=== PATIENT | male | born 1925 | race Caucasian/White ===

== ENCOUNTER 2016-08-13 17:49 | Observation (INO) | payer MEDICARE ==
[~2016-08-13] VITALS: Ht 182.9 cm; Wt 91.3 kg
[~2016-08-13 17:49] MED LIST: AMOXICILLIN500 M2 PO
[2016-08-13 17:51] VITALS: BP 117/64
[2016-08-13] MEDS ORDERED: WARFARIN 3MG TAB3 MG PO (18:04)
[2016-08-13] MEDS ORDERED: CYANOCOBAL1000 MCG/M PO (18:04)
[2016-08-13] MEDS ORDERED: FUROSEMIDE40 MG PO (18:05)
[2016-08-13] MEDS ORDERED: LEVOTHYROXINE0.05 MG PO (18:06)
[2016-08-13] MEDS ORDERED: ALBUTEROL2.5 MG/NEB INH (18:06)
[2016-08-13] MEDS ORDERED: ISOSORBIDE MONO30 MG PO (18:06)
[2016-08-13] MEDS ORDERED: CARVEDILOL6.25 MG PO (18:07)
[2016-08-13] MEDS ORDERED: DONEPEZIL 10MG10 MG PO (18:07)
[2016-08-13] MEDS ORDERED: CRESTOR20 MG PO (18:08)
[2016-08-13] MEDS ORDERED: TRICOR 145 MG145 MG NG (18:08)
[2016-08-13] MEDS ORDERED: VITAMIN D1000 IU PO (18:09)
[2016-08-13] MEDS ORDERED: LOVAZA1 GM PO (18:09)
[2016-08-13] MEDS ORDERED: NAMENDA XR28 MG PO (18:10)
[2016-08-13 18:21] LABS: HEMOGLOBIN 15.8 g/dL (14.1-18.0); LYMPH # 1.1 K/mm3 (0.7-4.5); LYMPH % 16.6 % (10-50)
[2016-08-13 18:41] LABS: URINE BILIRUBIN - DIPSTICK NEGATIVE (NEG); URINE BLOOD NEGATIVE (NEG)
--- NOTE | 2016-08-13 18:41 | Emergency Room Report ---
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 STATES PT IS CONFUSED AND NOT STANDING WELL STATES HE NORMALLY AMBULATES WITHOUT ASSIST. OFFICE REPORTS PT HAS HAD A DECLINE OVER PAST TWO DAYS. PT DENIES PAIN. 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 N Clinical Suspician of Infection? N Mental Status: 1 - Regular (Normal Baseline) Sepsis Risk:Low Sepsis Risk Have you (or family members/close friends) recently traveled outside the [place]? N If Yes, where/when: Have you had exposure to infectious disease within the past month? N TB? Other? Specify: Patient with frequent falls and confusion per PCP office report. They have requested workup and possible admission. Granddaughter states falling recently, generalized weakness, some confusion. Usually pretty lucid and ambulatory. No fevers or vomiting but taking less PO. ALLERGIES Coded Allergies: No Known Allergies (10/14/15) Home Medications Reported Medications VITAMIN B12 (Cyanocobalamin Injection) 1,000 MCG PO DAILY WARFARIN SOD (Warfarin 3MG) 3 MG PO DAILY Furosemide (Furosemide 40MG) 40 MG PO BID Isosorbide Mononitrate (Isosorbide Mononitrate ER) 30 MG PO QID Levothyroxine Sodium (Levothyroxine) 0.05 MG PO DAILY ALBUTEROL (Albuterol 0.083% Neb) 2.5 MG INH Q6HS PRN ASTHMA Carvedilol (Carvedilol 6.25MG) 3.12 MG PO BID DONEPEZIL HCL (Donepezil 10MG Tablet) 10 MG PO QHS Fenofibrate 145 MG NG QHS Rosuvastatin Calcium (Crestor) 20 MG PO QHS CHOLECALCIFEROL (VITAMIN D3) (Vitamin D3) 1,000 IUNITS PO DAILY OMEGA-3 ACID ETHYL ESTERS (Lovaza) 1 GM PO BID MEMANTINE HCL (Namenda XR) 28 MG PO DAILY (Dav NUNO, Nola Drummond) History Medical History General CAD? Yes Angina: No LA: No Hypertension? Yes Hyperlipidemia? Yes CHF? Yes DVT? No PE? No COPD? No Asthma? No Anemia? Yes GERD? No Gastric ulcers? No GI Bleed? No Hernia? Yes Thyroid Problems? Yes Hypothyroidism? Yes CVA? No Seizures? No Diabetes? No Renal Insuffiency? Yes End Stage Renal Disease? No UTI? No Stones? No BPH? Yes GB Disease: No Nephritic Syndrome? No Asplenia? No Hepatitis? No Sickle Cell Disease? No Arthritis? Yes Migraines? No Cataracts? No Glaucoma? No MRSA? No HIV? No TB? No Anxiety? No Depression? No Cancer? No More? Yes Additional hx: IRREGULAR HR Immunization Hx DT/Tetanus Unknown Surgical Hx Previous Surgery?Y PACEMAKER COLON SX Social History Smoking Hx Smoker: Current Every Day Smoker Tobacco: Yes Type Cigarettes Packs/day 1 1/2 - 2 Packs Alcohol Alcohol: No (Dav NUNO, Nola Drummond) Review of Systems All Other Systems Reviewed and Negative (per pt and granddaughter) Psychiatric/Neurological see HPI, other (progressive decline) (Dav NUNO, Nola Drummond) Physical Exam Vital Signs Vital Signs Date Time Temp Pulse Resp B/P Pulse O2 O2 Flow FiO2 Ox Delivery Rate 08/13 2033 98.9 70 20 97/54 92 08/13 1952 77 18 96/54 92 08/13 1950 98.9 70 20 96/54 94 08/13 1912 69 20 102/61 92 08/13 1831 76 20 111/61 91 08/13 1751 98.4 77 20 117/64 92 General Appearance normal appearance, WD/WN, no apparent distress Eye Exam - bilateral eye normal exam, bilateral eye PERRL Ear, Nose, Throat normal pharynx (OP dry) Neck normal inspection, non-tender, supple Respiratory Status Yes: trachea midline, chest symmetrical, non tender chest. No: respiratory distress, tender on palpation, use of accessory muscles, pain on inspiration, pain on expiration, productive cough, non productive cough. Lung Sounds bilateral: normal breath sounds, lungs clear. Cardiovascular normal exam, regular rate/rhythm, no peripheral edema, no gallop, no JVD, no murmur, no rub, normal peripheral pulses Gastrointestinal normal bowel sounds, normal exam, non tender, soft, no organomegaly, no pulsatile mass, no guarding, no rebound Extremities non-tender, normal range of motion, normal inspection, normal capillary refill, no calf tenderness, no pedal edema Neurologic alert, ergonomist II-XII nml as tested, normal exam, no motor/sensory deficits, Seems pleasantly demented: believes it is 1927, knows his name; not sure why he is at [facility]; initially afraid of staff but is cooperative; speech clear and fluent; exam nonfocal; no tremor Glascow Coma Scale Glascow Coma Scale Response Value EYE response: 4 Spontaneously 4 MOTOR response: 6 OBEYS 6 VERBAL response: 5 Oriented & Converses 5 Total 15 Skin intact (multiple sebaceous cysts face) (Dav NUNO, Nola Drummond) Medical Decision Making LABS/Meds/Orders Pt receiving controlled substance in ED? No Results/Orders Laboratory Tests 08/13/16 2004: PT 18.7 H, INR 1.75 H 08/13/16 1825: Urine Color YELLOW, Urine Appearance CLEAR, Urine pH 5.5, Ur Specific [place] 1.025, Urine Protein NEGATIVE, Urine Ketones NEGATIVE, Urine Blood NEGATIVE, Urine Nitrate NEGATIVE, Urine Bilirubin NEGATIVE, Urine Urobilinogen 0.2, Ur Leukocyte Esterase NEGATIVE, Ur Squamous Epith Cells 3-5, Urine Bacteria TRACE, Urine Yeast 3+, Urine Glucose NEGATIVE 08/13/16 1800: Lactic Acid 1.1 08/13/16 1800: Sodium 139, Potassium 4.4, Chloride 102, Carbon Dioxide 25, BUN 43 H, Creatinine 2.6 H, Estimated Creat Clear 22 L, Estimated GFR (MDRD) 23, Glucose 104, Calcium 9.8, Total Bilirubin 0.6, AST 73 H, ALT 29, Alkaline Phosphatase 31 L, Creatine Kinase 191, CK-MB (CK-2) Rel Index 0.7, CK and CKMB Interp 1.3, Troponin I 0.06, Total Protein 7.1, Albumin 3.1 L, Globulin 4.0 H, Albumin/ Globulin Ratio 0.8 L, WBC 6.7, RBC 4.77, Hgb 15.8, Hct 47.4, MCV 99.5 H, RDW 15.5, Plt Count 136 L, MPV 10.8 H, Gran % 70.2, Gran # 4.7, Lymphocytes % 16.6 , Monocytes % 10.8 H, Eosinophils % 1.0, Basophils % 1.4, Lymphocytes # 1.1, Monocytes # 0.7, Eosinophils # 0.1, Basophils # 0.1, PUBS MCHC 33.3, MCH 33.2 H Current Medication Orders Sig/Nupur Start time Last Medication Dose Route Stop Time Status Admin Sodium Chloride 1,000 ML .Q8H 08/13 1999 AC 08/13 IV 08/14 0750 195 Sodium Chloride 10 ML PRN PRN 08/13 1999 AC IV 08/14 1950 Sodium Chloride 1,000 ML .STK-MED ONE 08/13 1947 DC IV Orders Procedure Date/time Status DIET-NOTHING BY MOUTH 08/14 B Active IV SALINE LOCK 08/13 1950 Active ELECTROCARDIOGRAM REQUEST 08/[address] HEAD REQ 08/13 181 Complete PROTHROMBIN TIME 08/13 181 Complete CULTURE, BLOOD 08/13 1802 Active URINALYSIS/COMPLETE 08/13 180 Complete LACTIC ACID 08/13 180 Complete CBC WITH AUTO DIFF 08/13 180 Complete CARDIAC ENZYMES 08/13 180 Complete CHEM 12 PROFILE 08/13 180 Complete CM/EKG CM/EKG EKG rate, NSR, rhythm, no evid. of ischemic chgs, no ectopy, normal EKG, paced ventricular rhythm; a first EKG was obtained and noted to have wandering baseline so false reading of "LA and immediate repeat EKG was normal. XRAY/CT/US XRAY/CT/US XR interpretation by reviewed by me Xray Results normal/NAD, no infiltrates (PM; borderline CM; neg acute) CT head CT interpretation by reviewed by me ([facility] report reviewed) Time results known: 1947 Consult MD Physician Consult Time Called 1947 Reason Pt. Condition, Admission (Nola Demarco MD) Departure Departure Time of Disposition 1947 Disposition Still a Patient Clinical Impression Primary Impression: Generalized weakness Secondary Impressions: Confusion with non-focal neuro exam, Dehydration Condition STABLE ED Critical Care Critical Care Yes Time spent < 30 min Vital system(s) involved: Circulatory Failure (confusion) I was present at bedside for Coordinating pt's care, Interpreting EKGs/Strips , During my initial exam, Reviewing lab results, Reviewing old records, Discussing pt condition, For re-examinations (d/w family; consultation), Examining radiographs (Nola Demarco MD) Departure Time of Disposition 2039 Referrals Gurdeep Joe MD (Family) discussed with dr joe (Haris Adame MD) at 2040
--- NOTE | 2016-08-13 20:07 | RADIOLOGY REPORT PS360 ---
CT HEAD W/O CONTRAST HISTORY: Confusion, weakness, altered mental status/memory loss with disorientation CONFUSION COMPARISON: None TECHNIQUE: Axial images obtained without contrast. Brain and bone windows reviewed. FINDINGS: No midline shift, mass effect, intracranial hemorrhage, hydrocephalus, or extra-axial fluid collection is evident. There is atrophy with hypoattenuation in the periventricular region and subcortical area consistent with ischemic gliotic change from microvascular disease. Small area of decreased attenuation is present in the right thalamus consistent with an old lacunar infarction. The calvarium has an unremarkable appearance. No mastoid effusion. There is mucosal thickening of the ethmoid sinuses and an air-fluid level in the left aspect of the sphenoid sinus.. IMPRESSION: 1. Atrophy with chronic ischemic changes. 2. Sinusitis.
--- NOTE | 2016-08-13 20:08 | RADIOLOGY REPORT PS360 ---
CHEST-PORTABLE HISTORY: CONFUSION COMPARISON: None available FINDINGS: There is mild cardiomegaly without failure. Tripolar pacer is present. The lungs are clear bilaterally. No acute bony anomalies. IMPRESSION: Mild cardiomegaly otherwise negative.
[2016-08-13 22:12] VITALS: BP 104/48
[2016-08-13 22:51] VITALS: BP 97/48
[2016-08-14 04:54] VITALS: BP 111/60
[2016-08-14 06:37] LABS: HEMOGLOBIN 14.3 g/dL (14.1-18.0); LYMPH # 1.3 K/mm3 (0.7-4.5); LYMPH % 20.2 % (10-50)
[2016-08-14] MEDS ORDERED: TRICOR145 M1 PO (07:19)
[2016-08-14] MEDS ORDERED: COREG 3.125M3.125 MG PO (07:22)
--- NOTE | 2016-08-14 07:24 | PHARMACY CLINIC NOTE ---
Patient Demographics Patient Demographics Admission date: 08/13/16 Date: 08/14/16 Time: 07 Allergies Coded Allergies: No Known Allergies (10/14/15) HEIGHT- FT: 6 IN: 0.00 K.132 VTE General Information Labs: Laboratory Tests 08/14 1800 Coagulation PT (9.4 - 11.8 SECONDS) 18.7 H INR (0.9 - 1.1) 1.75 H Hematology Hgb (14.1 - 18.0 g/dL) 14.3 15.8 Hct (42.0 - 52.0 %) 44.4 47.4 Plt Count (142 - 424 K/mm3) 120 L 136 L Disclaimer The following section includes nursing documentation that has been pulled in for pharmacy review. Patient's VTE score: 2 Patient's VTE Risk: VERY LOW RISK Clinical trial participant? No VTE prophylaxis [id number] VTE prophylaxis ordered? Yes Type of prophylaxis/treatment: OG at 0723
[2016-08-14 08:31] VITALS: BP 115/65
[2016-08-14 08:48] VITALS: BP 115/65
--- NOTE | 2016-08-14 08:58 | HISTORY AND PHYSICAL REPORT ---
History and Physical ([facility]) Date of admission: 08/13/16 Chief complaint: Weakness History: History of Present Illness: Mr. Carroll is an 89-year-old white male who presented to the office of [facility] yesterday with increasing weakness. Patient's granddaughter reported that he had trouble getting around the house and fallen twice in the past 2 days. He had increased confusion. He lives with his granddaughter and great-granddaughter. His granddaughter reported he had not smoked in the past few weeks due to the cold weather, but he normally had a productive cough which had not changed. He does take neb treatments at home and took one the morning prior to his appointment in the office due to some shortness of breath while his granddaughter was helping him with a bath. His appetite is decreased, however he continued to take fluids well. She felt that there was a foul-smell to his urine and it had been darker over the past few days. He had not run a fever. He was evaluated in the office and his complete blood count was normal as was his U/A. It was felt he needed to be evaluated in the emergency room for weakness and confusion therefore an ambulance was called and he was transported to [facility]. Past Medical History: Medical History: CAD? Yes Angina: No MO: No Hypertension? Yes Hyperlipidemia? Yes CHF? Yes DVT? No PE? No COPD? No Asthma? No Anemia? Yes GERD? No Gastric ulcers? No GI Bleed? No Hernia? Yes Thyroid Problems? Yes Hypothyroidism? Yes CVA? No Seizures? No Diabetes? No Renal Insuffiency? Yes UTI? No Stones? No BPH? Yes GB Disease: No Nephritic Syndrome? No Asplenia? No Hepatitis? No Sickle Cell Disease? No Arthritis? Yes Migraines? No Cataracts? No Glaucoma? No MRSA? No HIV? No TB? No Anxiety? No Depression? No Cancer? No More? Yes Additional hx: 1. IRREGULAR HR 2. Cardiomyopathy 3. Pacemaker 4. Alzheimers Surgical history: Previous Surgery?Y 1. PACEMAKER 2. COLON SX 3. STENT 4. CATARACT 5. APPENDECTOMY Medications: Reported Medications FENOFIBRATE NANOCRYSTALLIZED (Tricor) 145 MG PO QHS Carvedilol (Coreg 3.125MG) 3.125 MG PO BID VITAMIN B12 (Cyanocobalamin Injection) 1,000 MCG PO DAILY WARFARIN SOD (Warfarin 3MG) 3 MG PO DAILY Furosemide (Furosemide 40MG) 40 MG PO BID Isosorbide Mononitrate (Isosorbide Mononitrate ER) 30 MG PO QID Levothyroxine Sodium (Levothyroxine) 0.05 MG PO DAILY ALBUTEROL (Albuterol 0.083% Neb) 2.5 MG INH Q6HS PRN ASTHMA DONEPEZIL HCL (Donepezil 10MG Tablet) 10 MG PO QHS Rosuvastatin Calcium (Crestor) 20 MG PO QHS CHOLECALCIFEROL (VITAMIN D3) (Vitamin D3) 1,000 IUNITS PO DAILY OMEGA-3 ACID ETHYL ESTERS (Lovaza) 1 GM PO BID MEMANTINE HCL (Namenda XR) 28 MG PO DAILY Allergies: Coded Allergies: atorvastatin (08/14/16) Family History: Family history: Postive for: unknown. Social History: Smoking Hx Tobacco: Yes Smoker: Current Every Day Smoker Type: Cigarettes Packs/day: 1 1/2 - 2 Packs Are you exposed to second hand No Alcohol: Alcohol: No Hx of Drug Use: Drug Use? No Review of Systems: Constitutional Positive for: fatigue, lethargy, malaise, weak. ENT No: nasal congestion, sore throat. Cardiovascular No: chest pain, edema, palpitations. Respiratory Positive for: shortness of air, productive cough (sputum), wheezing. GI No: abdominal pain, diarrhea, nausea, vomitting. (male) No: frequency, hematuria. Neurological Positive for: confusion, dizziness, weakness. No: syncope. Musculoskeletal No: extremity pain, joint pain, myalgias. Physical Exam: Vital signs: 1ST Vital Signs Result Date Time Pulse Ox 92 08/13 1750 B/P 117/64 08/13 1750 Temp 98.4 08/13 1750 Pulse 77 08/13 175 Resp 20 08/13 1750 O2 Delivery ROOM AIR 08/13 2210 Exam: General appearance: Pt is very hard of hearing, he can answer some questions but falls asleep during questioning Eyes: EOM's w/normal ROM, PERRLA ENT: nose normal, pharynx normal, tympanic membranes normal, dry mucous membranes, cerumen in ear canals Neck: non-tender, full range of motion, supple Cardiovascular: regular rate & rhythm Respiratory: faint expiratory wheezes, no rales ABD: non-distended, normal bowel sounds, no rebound, soft, no tenderness, no guarding Extremities: no peripheral edema Musculoskeletal: equal muscle strength (but weak) Skin: normal color Neuro: magnetic 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 II-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 nml as tested, speech clear, strength equal but weak, patient confused off and on and falls asleep during questioning Lab data: Labs: Laboratory Tests 08/14/16 0620: Sodium 142, Potassium 4.0, Chloride 106, Carbon Dioxide 29, BUN 43 H, Creatinine 2.4 H, Estimated Creat Clear 26 L, Estimated GFR (MDRD) 26, Glucose 86, Calcium 9.2, WBC 6.5, RBC 4.43 L, Hgb 14.3, Hct 44.4, MCV 100.3 H, RDW 15.0, Plt Count 120 L, MPV 11.3 H, Gran % 66.2, Gran # 4.3, Lymphocytes % 20.2 , Monocytes % 12.0 H, Eosinophils % 0.8, Basophils % 0.8, Lymphocytes # 1.3, Monocytes # 0.8, Eosinophils # 0.1, Basophils # 0.1, PUBS MCHC 32.2, MCH 32.3 H 08/13/16 2100: Influenza Type A Ag NOT DETECTED, Influenza Type B Ag NOT DETECTED 08/13/16 2004: PT 18.7 H, INR 1.75 H 08/13/16 1825: Urine Color YELLOW, Urine Appearance CLEAR, Urine pH 5.5, Ur Specific [place] 1.025, Urine Protein NEGATIVE, Urine Ketones NEGATIVE, Urine Blood NEGATIVE, Urine Nitrate NEGATIVE, Urine Bilirubin NEGATIVE, Urine Urobilinogen 0.2, Ur Leukocyte Esterase NEGATIVE, Ur Squamous Epith Cells 3-5, Urine Bacteria TRACE, Urine Yeast 3+, Urine Glucose NEGATIVE 08/13/16 1800: TSH 3.57, Thyroxine (T4) 8.4 08/13/16 1800: Lactic Acid 1.1 08/13/16 1800: Sodium 139, Potassium 4.4, Chloride 102, Carbon Dioxide 25, BUN 43 H, Creatinine 2.6 H, Estimated Creat Clear 22 L, Estimated GFR (MDRD) 23, Glucose 104, Calcium 9.8, Total Bilirubin 0.6, AST 73 H, ALT 29, Alkaline Phosphatase 31 L, Creatine Kinase 191, CK-MB (CK-2) Rel Index 0.7, CK and CKMB Interp 1.3, Troponin I 0.06, Total Protein 7.1, Albumin 3.1 L, Globulin 4.0 H, Albumin/ Globulin Ratio 0.8 L, WBC 6.7, RBC 4.77, Hgb 15.8, Hct 47.4, MCV 99.5 H, RDW 15.5, Plt Count 136 L, MPV 10.8 H, Gran % 70.2, Gran # 4.7, Lymphocytes % 16.6 , Monocytes % 10.8 H, Eosinophils % 1.0, Basophils % 1.4, Lymphocytes # 1.1, Monocytes # 0.7, Eosinophils # 0.1, Basophils # 0.1, PUBS MCHC 33.3, MCH 33.2 H Microbiology 08/13 1799 BLOOD: Anaerobic Blood Culture - RECD 08/13 1800 BLOOD: Aerobic Blood Culture - RECD 08/13 1800 BLOOD: Anaerobic Blood Culture - RECD 08/13 1800 BLOOD: Aerobic Blood Culture - RECD Radiology results: Results: CXR - Mild cardiomegaly otherwise negative. Head CT - Atrophy with chronic ischemic changes. Sinusitis. Diagnosis(es): 1. Generalized weakness Status: Acute 2. Renal insufficiency 3. Confusion with non-focal neuro exam Status: Acute 4. Dehydration Status: Acute 5. Sinusitis Status: Acute 6. HYPERLIPIDEMIA, UNSPECIFIED 7. HYPOTHYROIDISM, UNSPECIFIED 8. COPD (chronic obstructive pulmonary disease) 9. Cardiomyopathy 10. Alzheimer's dementia Plan: Pt's CT showed a sinusitis. Will start on some rocephin. He has already been started on some of his home medications. Will continue to monitor. Renal function has improved slightly. at 0857
[2016-08-14 16:02] VITALS: BP 118/61
[2016-08-14 20:03] VITALS: BP 125/63
[2016-08-14 21:30] VITALS: BP 125/63
[2016-08-15 04:03] VITALS: BP 92/52
[2016-08-15 07:43] LABS: HEMOGLOBIN 14.6 g/dL (14.1-18.0); LYMPH # 1.2 K/mm3 (0.7-4.5); LYMPH % 28.7 % (10-50)
[2016-08-15 07:54] VITALS: BP 101/55
[2016-08-15 09:35] VITALS: BP 101/55
[2016-08-15 16:41] VITALS: BP 124/69
--- NOTE | 2016-08-15 17:15 | ACUTE CARE PROGRESS NOTE (QUA) ---
Progress Notes Subjective Date 08/15/16 Time 1710 Note Mentating better today, though he is still confused as to place. Able to talk about living in [place] and in [place]. Father from [place], mother from [place]. 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 Patient/family reports: feeling better Objective Findings Laboratory Tests 08/15/16 0650: Sodium 143, Potassium 4.2, Chloride 108 H, Carbon Dioxide 26, BUN 43 H, Creatinine 1.9 H, Estimated Creat Clear 33 L, Estimated GFR (MDRD) 34, Glucose 76, Calcium 9.2, WBC 4.3 L, RBC 4.42 L, Hgb 14.6, Hct 44.8, MCV 101.4 H, RDW 15.1, Plt Count 106 L, MPV 10.8 H, Gran % 56.1, Gran # 2.4, Lymphocytes % 28.7 , Monocytes % 12.9 H, Eosinophils % 0.8, Basophils % 1.5, Lymphocytes # 1.2, Monocytes # 0.6, Eosinophils # 0.0, Basophils # 0.1, PUBS MCHC 32.5, MCH 32.9 H Last VS-Temp:98.3 B/P:124/69 Pulse:67 Resp:16 SaO2:91 ROOM AIR Last weight lbs:196 oz:8 K.132 Method:Bed Scales Exam Cardiovascular: regular rate & rhythm (pacer battery in place) Respiratory: clear to auscultation (slight wheeze and cough) ABD: soft Extremities: no peripheral edema Assessment/Plan Problem List 1. Generalized weakness Status: Acute 2. Renal insufficiency 3. Confusion with non-focal neuro exam Status: Acute 4. Dehydration Status: Acute 5. Sinusitis Status: Acute 6. HYPERLIPIDEMIA, UNSPECIFIED 7. HYPOTHYROIDISM, UNSPECIFIED 8. COPD (chronic obstructive pulmonary disease) 9. Cardiomyopathy 10. Alzheimer's dementia Patient condition Improving Plan: Xopenex. Increased Memantine to bid This inpt stay is expected to cross 2 MNs from start of care Yes at 1712
[2016-08-15 19:38] VITALS: BP 124/69
[2016-08-15 20:00] VITALS: BP 112/73
[2016-08-16 03:59] VITALS: BP 101/63
[2016-08-16 08:07] VITALS: BP 132/59
--- NOTE | 2016-08-16 15:16 | ACUTE CARE PROGRESS NOTE (QUA) ---
Progress Notes Subjective Date 08/16/16 Time 1513 Note He is much more mentally intact. Discusses placement with family in [facility]. vs [place]. Objective Findings Last VS-Temp:98.1 B/P:132/59 Pulse:70 Resp:16 SaO2:93 ROOM AIR Last weight lbs:196 oz:8 K.132 Method:Bed Scales Exam General appearance: alert, no acute distress Eyes: anicteric ENT: mucous membranes moist Cardiovascular: regular rate & rhythm (paced) Respiratory: aerating well ABD: soft, no tenderness Extremities: says right 5th toe hurts. Exam normal. OG's were adjusted. Assessment/Plan Problem List 1. Generalized weakness Status: Acute 2. Renal insufficiency 3. Confusion with non-focal neuro exam Status: Acute 4. Dehydration Status: Acute 5. Sinusitis Status: Acute 6. HYPERLIPIDEMIA, UNSPECIFIED 7. HYPOTHYROIDISM, UNSPECIFIED 8. COPD (chronic obstructive pulmonary disease) 9. Cardiomyopathy 10. Alzheimer's dementia Patient condition Improving Plan: care management consult This inpt stay is expected to cross 2 MNs from start of care Yes at 1516
[2016-08-16 16:38] VITALS: BP 100/60
[2016-08-16 19:39] VITALS: BP 103/59
[2016-08-17 04:00] VITALS: BP 105/48
[2016-08-17 07:49] VITALS: BP 104/58
--- NOTE | 2016-08-17 08:52 | ACUTE CARE PROGRESS NOTE (QUA) ---
Progress Notes Subjective Date 08/17/16 Time 0851 Assessment/Plan Problem List 1. Generalized weakness Status: Acute 2. Renal insufficiency 3. Confusion with non-focal neuro exam Status: Acute 4. Dehydration Status: Acute 5. Sinusitis Status: Acute 6. HYPERLIPIDEMIA, UNSPECIFIED 7. HYPOTHYROIDISM, UNSPECIFIED 8. COPD (chronic obstructive pulmonary disease) 9. Cardiomyopathy 10. Alzheimer's dementia This inpt stay is expected to cross 2 MNs from start of care Yes Antibiotic Stewardship (2) Current Culture Results Microbiology 08/13 1800 BLOOD: Anaerobic Blood Culture - RECD 08/13 1800 BLOOD: Aerobic Blood Culture - RECD Infxn that will respond? Yes Right drug,dose,and route? Yes More targeted antbx? No How long atbx needed? 7 at 0851
--- NOTE | 2016-08-17 08:58 | ACUTE CARE PROGRESS NOTE (QUA) ---
Progress Notes Subjective Date 08/17/16 Time 0851 Note Thinks that he is better; states he is a good sleeper; eating well; has been OOB ; productive cough; denies CP and SOB; voiding QS and bowels are moving Objective Findings Laboratory Tests 08/17/16 0610: Sodium 144, Potassium 4.3, Chloride 111 H, Carbon Dioxide 26, BUN 31 H, Creatinine 1.7 H, Estimated Creat Clear 38 L, Estimated GFR (MDRD) 38, Glucose 81, Calcium 9.2, PT 23.7 H, INR 2.21 H Vital Signs Date Time Temp Pulse Resp B/P Pulse O2 O2 Flow FiO2 Ox Delivery Rate 08/17 0749 98.7 74 20 104/58 94 ROOM AIR 08/17 0547 93 ROOM AIR 08/17 0400 98.7 69 18 105/48 93 ROOM AIR 08/16 2058 98.1 72 16 103/59 92 08/16 1939 98.1 72 16 103/59 92 ROOM AIR 08/16 1638 97.9 69 20 100/60 93 ROOM AIR Current Medications Isosorbide Mononitrate 30 MG BID PO Acetaminophen 0 .STK-MED ONE PO (DC) Memantine 10 MG BID PO Levalbuterol HCl 1.25 MG TIDRT INH Fenofibrate 134 MG QHS PO Warfarin Sodium 3 MG 1100 PO Carvedilol 3.125 MG BID PO Ceftriaxone Sodium 1 GM DAILY IV Sodium Chloride 50 ML Levothyroxine Sodium 0.05 MG DAILY PO Acetaminophen 650 MG Q4HP PRN PO Donepezil HCl 10 MG QHS PO Isosorbide Mononitrate 30 MG QID PO (DC) Nicotine 21 MG DAILYP PRN TD Ondansetron HCl 4 MG Q6HP PRN IV Sodium Chloride 1,000 ML .[id number] IV Sodium Chloride 10 ML PRN PRN IV 08/16 1500 08/16 2300 08/17 0700 Intake Total 180 1040 1503 Output Total Balance 180 1040 1503 Intake, IV 680 1503 Intake, Oral 180 360 Output, Stool Patient 201 lb Weight Last VS-Temp:98.7 B/P:104/58 Pulse:74 Resp:20 SaO2:94 ROOM AIR Last weight lbs:201 oz:5 K.314 Method:Bed Scales Exam General appearance: alert, no acute distress, sitting up in the bed eating breakfast Cardiovascular: regular rate & rhythm Respiratory: some expiratory wheezing and rhonchi clearing with deep breathing and coughing ABD: non-distended, soft, no tenderness, no guarding Extremities: no peripheral edema, no calf tenderness Neuro: alert, oriented Assessment/Plan Problem List 1. Generalized weakness Status: Acute 2. Renal insufficiency 3. Confusion with non-focal neuro exam Status: Acute 4. Dehydration Status: Acute 5. Sinusitis Status: Acute 6. HYPERLIPIDEMIA, UNSPECIFIED 7. HYPOTHYROIDISM, UNSPECIFIED 8. COPD (chronic obstructive pulmonary disease) 9. Cardiomyopathy 10. Alzheimer's dementia Patient condition Improving Plan: Patient explains that he wishes to go to a place with "full Care" and not his son's house; he wishes the care but also the company, care management to follow-up This inpt stay is expected to cross 2 MNs from start of care Yes Antibiotic Stewardship (2) Infxn that will respond? Yes Right drug,dose,and route? Yes More targeted antbx? No at 0857
[2016-08-17] MEDS ORDERED: OMNICEF 300 MG300 MG PO (10:22)
[2016-08-17 15:00] VITALS: BP 104/58
[2016-08-18 08:40] LABS: Folate (Folic Acid) 15.2 ng/mL (>3.0)
--- NOTE | 2016-08-24 15:42 | DISCHARGE SUMMARY STANDARD ---
Discharge Summary ([facility]) Date of admission: 08/13/16 Date of discharge: 08/17/16 Problem List: 1. Generalized weakness 2. Renal insufficiency 3. Confusion with non-focal neuro exam 4. Dehydration 5. Sinusitis 6. HYPERLIPIDEMIA, UNSPECIFIED 7. HYPOTHYROIDISM, UNSPECIFIED 8. COPD (chronic obstructive pulmonary disease) 9. Cardiomyopathy 10. Alzheimer's dementia History of present illness: History of Present Illness: Mr. Carroll is an 89-year-old white male who presented to the office of [facility] yesterday with increasing weakness. Patient's granddaughter reported that he had trouble getting around the house and fallen twice in the previous 2 days. He had increased confusion. He lived with his granddaughter and great-granddaughter. His granddaughter reported he had not smoked in the past few weeks due to the cold weather, but he normally had a productive cough which had not changed. He was taking neb treatments at home and took one the morning prior to his appointment in the office due to some shortness of breath while his granddaughter was helping him with a bath. His appetite was decreased; however he continued to take fluids well. She felt that there was a foul-smell to his urine and it had been darker over the past few days. He had not run a fever. He was evaluated in the office and his complete blood count was normal as was his U /A. It was felt he needed to be evaluated in the emergency room for weakness and confusion therefore an ambulance was called and he was transported to [facility]. Exam on admission: Vital signs: 1ST Vital Signs Result Date Time Pulse Ox 92 08/13 1751 B/P 117/64 08/13 1751 Temp 98.4 08/13 1751 Pulse 77 08/13 1751 Resp 20 08/13 1751 O2 Delivery ROOM AIR 08/13 2210 Exam: General appearance: Pt was very hard of hearing; he answered some questions but fell asleep during questioning Eyes: EOM's w/normal ROM, PERRLA ENT: nose normal, pharynx normal, tympanic membranes normal, dry mucous membranes, cerumen in ear canals Neck: non-tender, full range of motion, supple Cardiovascular: regular rate & rhythm Respiratory: faint expiratory wheezes, no rales ABD: non-distended, normal bowel sounds, no rebound, soft, no tenderness, no guarding Extremities: no peripheral edema Musculoskeletal: equal muscle strength (but weak) Skin: normal color 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 He became more alert. Renal function also improved. He was also evaluated by PT who felt he was good to go home with home health. On 08/17/16 patient felt that he was better. He was eating better and had been OOB. On this date he was discharged to home. Disposition had been arranged by Care Management. Laboratory data this visit: 08/17/16 0610: Sodium 144, Potassium 4.3, Chloride 111 H, Carbon Dioxide 26, BUN 31 H, Creatinine 1.7 H, Estimated Creat Clear 38 L, Estimated GFR (MDRD) 38, Glucose 81, Calcium 9.2, PT 23.7 H, INR 2.21 H 08/14/16 0620: Sodium 142, Potassium 4.0, Chloride 106, Carbon Dioxide 29, BUN 43 H, Creatinine 2.4 H, Estimated Creat Clear 26 L, Estimated GFR (MDRD) 26, Glucose 86, Calcium 9.2, WBC 6.5, RBC 4.43 L, Hgb 14.3, Hct 44.4, MCV 100.3 H, RDW 15.0, Plt Count 120 L, MPV 11.3 H, Gran % 66.2, Gran # 4.3, Lymphocytes % 20.2 , Monocytes % 12.0 H, Eosinophils % 0.8, Basophils % 0.8, Lymphocytes # 1.3, Monocytes # 0.8, Eosinophils # 0.1, Basophils # 0.1, PUBS MCHC 32.2, MCH 32.3 H 08/13/16 2100: Influenza Type A Ag NOT DETECTED, Influenza Type B Ag NOT DETECTED 08/13/16 2004: PT 18.7 H, INR 1.75 H 08/13/16 1825: Urine Color YELLOW, Urine Appearance CLEAR, Urine pH 5.5, Ur Specific [place] 1.025, Urine Protein NEGATIVE, Urine Ketones NEGATIVE, Urine Blood NEGATIVE, Urine Nitrate NEGATIVE, Urine Bilirubin NEGATIVE, Urine Urobilinogen 0.2, Ur Leukocyte Esterase NEGATIVE, Ur Squamous Epith Cells 3-5, Urine Bacteria TRACE, Urine Yeast 3+, Urine Glucose NEGATIVE 08/13/16 1800: TSH 3.57, Thyroxine (T4) 8.4 08/13/16 1800: Lactic Acid 1.1 08/13/16 1800: Sodium 139, Potassium 4.4, Chloride 102, Carbon Dioxide 25, BUN 43 H, Creatinine 2.6 H, Estimated Creat Clear 22 L, Estimated GFR (MDRD) 23, Glucose 104, Calcium 9.8, Total Bilirubin 0.6, AST 73 H, ALT 29, Alkaline Phosphatase 31 L, Creatine Kinase 191, CK-MB (CK-2) Rel Index 0.7, CK and CKMB Interp 1.3, Troponin I 0.06, Total Protein 7.1, Albumin 3.1 L, Globulin 4.0 H, Albumin/ Globulin Ratio 0.8 L, WBC 6.7, RBC 4.77, Hgb 15.8, Hct 47.4, MCV 99.5 H, RDW 15.5, Plt Count 136 L, MPV 10.8 H, Gran % 70.2, Gran # 4.7, Lymphocytes % 16.6 , Monocytes % 10.8 H, Eosinophils % 1.0, Basophils % 1.4, Lymphocytes # 1.1, Monocytes # 0.7, Eosinophils # 0.1, Basophils # 0.1, PUBS MCHC 33.3, MCH 33.2 H Imagin08/13/16 CXR IMPRESSION: Mild cardiomegaly otherwise negative. CT of head 08/13/16 IMPRESSION: 1. Atrophy with chronic ischemic changes. 2. Sinusitis. Discharge medications: Stop taking the following medications: Furosemide (Furosemide 40MG) 40 MG TABLET ORAL TWICE A DAY Continue taking these medications: VITAMIN B12 (Cyanocobalamin Injection) 1,000 MCG/ML VIAL 1,000 MICROGRAM ORAL DAILY WARFARIN SOD (Warfarin 3MG) 3 MG TABLET 3 MILLIGRAM ORAL DAILY Isosorbide Mononitrate (Isosorbide Mononitrate ER) 30 MG TAB.ER.24H 30 MILLIGRAM ORAL TWICE A DAY Levothyroxine Sodium (Levothyroxine) 50 MCG TABLET 0.05 MILLIGRAM ORAL DAILY ALBUTEROL (Albuterol 0.083% Neb) 2.5 MG/3 ML NEB 2.5 MILLIGRAM INHALATION (NEB) Q6HS as needed for ASTHMA DONEPEZIL HCL (Donepezil 10MG Tablet) 10 MG TABLET 10 MILLIGRAM ORAL AT BEDTIME NIGHTLY Rosuvastatin Calcium (Crestor) 20 MG TABLET 20 MILLIGRAM ORAL AT BEDTIME NIGHTLY CHOLECALCIFEROL (VITAMIN D3) (Vitamin D3) 1,000 UNIT TABLET 1,000 INT. UNITS ORAL DAILY OMEGA-3 ACID ETHYL ESTERS (Lovaza) 1 GRAM CAPSULE 1 GRAM ORAL TWICE A DAY MEMANTINE HCL (Namenda XR) 28 MG CAP.SPR.24 28 MILLIGRAM ORAL DAILY FENOFIBRATE NANOCRYSTALLIZED (Tricor) 145 MG TABLET 145 MILLIGRAM ORAL AT BEDTIME NIGHTLY Carvedilol (Coreg 3.125MG) 3.125 MG TABLET 3.125 MILLIGRAM ORAL TWICE A DAY Start taking the following new medications: CEFDINIR (Cefdinir) 300 MG CAPSULE 300 MILLIGRAM ORAL TWICE A DAY Days = 7 No Refills Disposition: Patient was discharged and to go with [facility]. Patient was to have Home Health. Meds as per reconciliation sheet. To continue with same diet and activity. Follow up with Dr. Joe in 7 days. at 1887
== END 2016-08-17 15:10 | disposition home or self-care (01) ==
LOC: ER 17:49 → 2ND 20:49
PROVIDERS: Emergency Medicine; Family Medicine
DX: R53.1 Weakness (principal); E86.0 Dehydration; J32.9 Chronic sinusitis, unspecified; I42.9 Cardiomyopathy, unspecified; J44.9 Chronic obstructive pulmonary disease, unspecified; E03.9 Hypothyroidism, unspecified; G30.9 Alzheimer's disease, unspecified; F02.80 Dementia in other diseases classified elsewhere, unspecified severity, without behavioral disturbance, psychotic disturbance, mood disturbance, and anxiety; Z91.81 History of falling
CPT/HCPCS: G0378; G8978; G8979; G8980; G8990; G8991; G8992